=== PATIENT | male | born 2000 | race Two or more races ===

== ENCOUNTER 2020-06-28 07:34 | Day surgery (SDC) | payer MEDICAID ==
[~2020-06-28] VITALS: Ht 170.2 cm; Wt 63.5 kg
[~2020-06-28 07:34] MED LIST: NONE PER PT
[2020-06-28] MEDS ORDERED: CHLORHEXIDINE 15 ML UDC ONE (08:04)
[2020-06-28] MEDS ORDERED: MIDAZOLAM 1 MG/ML, 2ML ONE (08:23)
[2020-06-28] MEDS ORDERED: FENTANYL PF 250 MCG/5ML ONE (08:24)
[2020-06-28] MEDS ORDERED: LIDOCAINE-MPF 1%, 2ML ONE (08:29)
[2020-06-28] MEDS ORDERED: CHLORHEXIDINE 15 ML UDC PO ONE (08:30)
[2020-06-28] MEDS ORDERED: LIDOCAINE-MPF 1%, 2ML INFIL ONE (08:30)
[2020-06-28] MEDS ORDERED: LACTATED RINGERS 1,000 ML IV SCH (09:00)
[2020-06-28] MEDS ORDERED: EPINEPHRINE TOPICAL SOLN 1 MG/ML, 30ML ONE ×2 (09:16→11:05)
[2020-06-28] MEDS ORDERED: BACITRACIN 50,000 UNIT ONE (09:17)
[2020-06-28] MEDS ORDERED: EPINEPHRINE 1 MG/ML, 1ML ONE (09:17)
[2020-06-28] MEDS ORDERED: FLUORESCEIN SODIUM 500 MG/5 ML ONE (09:17)
[2020-06-28] MEDS ORDERED: LIDOCAINE/PF 1%, 30ML ONE (09:17)
[2020-06-28] MEDS ORDERED: BACITRACIN OINT 500U/GM, 15 GM ONE (09:17)
[2020-06-28] MEDS ORDERED: OXYMETAZOLINE NASAL SPRAY 0.05%,30ML ONE (09:17)
[2020-06-28] MEDS ORDERED: OXYC5TAB2 PO (09:23)
[2020-06-28] MEDS ORDERED: IBUP-1223 PO (09:23)
[2020-06-28] MEDS ORDERED: AZIT250T PO (09:23)
[2020-06-28] MEDS ORDERED: SENN-99 PO (09:23)
[2020-06-28] MEDS ORDERED: ACET325T14 PO (09:23)
[2020-06-28] MEDS ORDERED: hydrALAzine 20 MG/ML, 1ML IV PRN (10:30)
[2020-06-28] MEDS ORDERED: OXYcodone 5 MG/5 ML ORAL.SOL UDC PO PRN (10:30)
[2020-06-28] MEDS ORDERED: MEPERIDINE/PF 25MG/0.5ML IVPush PRN (10:30)
[2020-06-28] MEDS ORDERED: LABETALOL 5MG/ML, 20ML IV PRN (10:30)
[2020-06-28] MEDS ORDERED: PROMETHAZINE 25 MG/ML, 1ML IVPush PRN (10:30)
[2020-06-28] MEDS ORDERED: ALBUTEROL SULFATE 2.5 MG/3 ML NPPB PRN (10:30)
[2020-06-28] MEDS ORDERED: FENTANYL PF 100 MCG/2ML IV PRN (10:30)
[2020-06-28] MEDS ORDERED: MIDAZOLAM 1 MG/ML, 2ML IV PRN (10:30)
[2020-06-28] MEDS ORDERED: HYDROmorphone 1 MG/ML, 1ML INJ IVPush PRN (10:30)
[2020-06-28] MEDS ORDERED: ROCURONIUM 10MG/ML,5ML ONE (12:03)
[2020-06-28] MEDS ORDERED: ONDANSETRON 2MG/ML, 2ML ONE (12:03)
[2020-06-28] MEDS ORDERED: GLYCOPYRROLATE 0.2MG/1ML, 5ML ONE (12:03)
[2020-06-28] MEDS ORDERED: CEFAZOLIN 1,000 MG ONE (12:03)
[2020-06-28] MEDS ORDERED: DEXAMETHASONE 4 MG/ML, 1ML ONE (12:03)
[2020-06-28] MEDS ORDERED: METOCLOPRAMIDE 5 MG/ML, 2ML ONE (12:03)
[2020-06-28] MEDS ORDERED: NEOSTIGMINE 1 MG/ML, 10ML ONE (12:03)
[2020-06-28] MEDS ORDERED: PROPOFOL 10 MG/ML, 20ML ONE (12:03)
[2020-06-28] MEDS ORDERED: LIDOCAINE-MPF 2% ,5ML ONE (12:03)
[2020-06-28] MEDS ORDERED: ACETAMINOPHEN 650 MG/20.3 ML UDC ONE (13:05)
[2020-06-28] MEDS: ACETAMINOPHEN 325 MG TABLET PO PRN ×2 (13:07→13:51)
== END 2020-06-28 15:00 | disposition home or self-care (01) ==
LOC: OUT 07:34
PROVIDERS: ATTEND Otolaryngology
DX: J34.2 Deviated nasal septum (principal); J32.4 Chronic pansinusitis; J33.8 Other polyp of sinus; J34.1 Cyst and mucocele of nose and nasal sinus; J34.3 Hypertrophy of nasal turbinates; Z20.822 Contact with and (suspected) exposure to COVID-19; Z79.899 Other long term (current) drug therapy
CPT/HCPCS: 30520; 31253; 31257; 31267; 61782; 88304; C1769; C9122; J0171; J0690; J1100; J2250; J2405; J2704; J2710; J2765; J3010; J7120; U0003; J7402